=== PATIENT | male | born 1985 | race Caucasian/White ===

== ENCOUNTER 2017-02-25 12:22 | Emergency (ER) | payer OTHER ==
[2017-02-25] MEDS ORDERED: NS 1,000 ML IV ONE (12:57)
--- NOTE | 2017-02-25 13:52 | EDPHY ---
HPI/HX/ROS/PE/MDM Narrative: CHIEF COMPLAINT: Vomiting, abdominal cramping, diarrhea. HPI: This patient is a 31 year old male complaining of intermittent diarrhea and vomiting onset one week ago. 02/17/17 he felt nauseous, and subsequently developed diarrhea and vomiting. He ate a mostly liquid diet throughout the week but was able to eat solid food and feeling better over the weekend. Yesterday, he developed a "sour stomach" and his vomiting and diarrhea recurred last night. This morning, he visited urgent care, but was directed to the emergency department for further evaluation due to abdominal discomfort. He denies recent international travel, unusual food consumption, antibiotic use, or history of GI issues. He denies contact with any persons with similar symptoms. No fever, chest pain, shortness of breath, or other associated symptoms. REVIEW OF SYSTEMS: Aside from elements discussed in the HPI, a comprehensive 10-point review of systems was reviewed and is negative. PMH: Gout. SOCIAL HISTORY: No alcohol or tobacco use. Works in retail. Lives in [place]. PHYSICAL EXAM: General:Patient is alert, in no acute distress. ENT:Eyes are normal to inspection. ENT inspection normal. Neck: Normal inspection. Full range of motion. Respiratory:No respiratory distress. Breath sounds normal bilaterally. Cardiovascular: Regular rate and rhythm. Strong peripheral pulses. Normal cap refill. Abdomen:The abdomen is nontender to palpation. There are no peritoneal signs. There are normal bowel sounds. Back: Normal to inspection. No tenderness to palpation. Skin: Normal color. No rash. Warm and dry. Extremities: Normal appearance. Full range of motion. Neuro: Oriented x3. Normal motor function. Normal sensory function. Portions of this note were transcribed by an ED scribe. I personally performed the history, physical exam, and medical decision making; and confirm the accuracy of the information in the transcribed note. MDM: This patient presents with persistent vomiting and diarrhea of unknown etiology. His stool PCR is negative for organisms. He was sent to the ED by urgent care because of abdominal pain, but patient states 'that was just gas' and denies abdominal pain at this time. I had an extensive discussion with him regarding his symptoms and the possibility this represents appendicitis or other bowel pathology. I recommended CTAP but patient refuses and he would like to go home. He understands I cannot rule out potentially life-threatening illness without further testing, and he promises to return for any worsening of condition. - Data Points Laboratory Results: Laboratory Results 02/25/17 15:15 02/25/17 15:15 02/25/17 02/25/17 15:15 15:15 WBC 8.36 10^3/uL 10^3/uL (3.80-9.50) RBC 5.55 10^6/uL 10^6/uL (4.40-6.38) Hgb 16.7 g/dL g/dL (13.7-17.5) Hct 47.0 % % (40.0-51.0) MCV 84.7 fL fL (81.5-99.8) MCH 30.1 pg pg (27.9-34.1) MCHC 35.5 g/dL g/dL (32.4-36.7) RDW 11.7 % % (11.5-15.2) Plt Count 363 10^3/uL 10^3/uL (150-400) MPV 8.2 fL L fL (8.7-11.7) Neut % (Auto) 60.9 % % (39.3-74.2) Lymph % (Auto) 25.2 % % (15.0-45.0) Blair % (Auto) 11.8 % % (4.5-13.0) Eos % (Auto) 1.0 % % (0.6-7.6) Baso % (Auto) 0.5 % % (0.3-1.7) Nucleat RBC Rel Count 0.0 % % (0.0-0.2) Absolute Neuts (auto) 5.09 10^3/uL 10^3/uL (1.70-6.50) Absolute Lymphs (auto) 2.11 10^3/uL 10^3/uL (1.00-3.00) Absolute Monos (auto) 0.99 10^3/uL H 10^3/uL (0.30-0.80) Absolute Eos (auto) 0.08 10^3/uL 10^3/uL (0.03-0.40) Absolute Basos (auto) 0.04 10^3/uL 10^3/uL (0.02-0.10) Absolute Nucleated RBC 0.00 10^3/uL 10^3/uL (0-0.01) Immature Gran % 0.6 % % (0.0-1.1) Immature Gran # 0.05 10^3/uL 10^3/uL (0.00-0.10) Sodium 136 mEq/L mEq/L (134-144) Potassium 4.7 mEq/L mEq/L (3.5-5.2) Chloride 106 mEq/L mEq/L (97-110) Carbon Dioxide 18 mEq/l L mEq/l (22-31) Anion Gap 12 mEq/L mEq/L (8-16) BUN 11 mg/dL mg/dL (7-23) Creatinine 0.8 mg/dL mg/dL (0.7-1.3) Estimated GFR > 60 Glucose 109 mg/dL H mg/dL (70-100) Calcium 9.5 mg/dL mg/dL (8.5-10.4) Specimen Hemolysis 125 Medications Given: Discontinued Medications Sodium Chloride (Ns) 1,000 mls @ 0 mls/hr IV EDNOW ONE; Wide Open PRN Reason: Protocol Stop: 02/25/17 12:58 Last Admin: 02/25/17 15:05 Dose: 1,000 mls Lidocaine/Prilocaine (Emla Cream) 1 josé luis TP EDNOW ONE Stop: 02/25/17 14:27 Last Admin: 02/25/17 14:29 Dose: 1 josé luis Lorazepam (Ativan) 1 mg PO EDNOW ONE Stop: 02/25/17 14:27 Last Admin: 02/25/17 14:29 Dose: 1 mg Microbiology Results: MICROBIOLOGY 02/25/17 13:45 Stool Gastrointestinal Tract Panel (PCR) - Final No Organism Detected General Time Seen by Provider: 02/25/17 13:35 Initial Vital Signs: Initial Vital Signs Temperature (C) 36.8 C 02/25/17 12:27 Heart Rate 89 02/25/17 12:27 Respiratory Rate 18 02/25/17 12:27 Blood Pressure 111/73 02/25/17 12:27 O2 Sat (%) 96 02/25/17 12:27 O2 Delivery Mode Room Air Allergies/Adverse Reactions: No Known Allergies Allergy (Verified 02/25/17 12:26) Home Medications: Medication Instructions Recorded traZODone [traZODONE 100MG (*)] 100 mg PO 01/08/15 Allopurinol [Allopurinol 100 MG 100 mg PO DAILY 02/25/17 (*)] DESVENLAFAXINE SUCCINATE [Pristiq] 50 mg PO 02/25/17 Ondansetron Odt [Zofran Odt] 4 mg PO Q4PRN PRN #10 tab 02/25/17 Departure - Departure Disposition: Home, Routine, Self-Care Clinical Impression: Vomiting, Diarrhea Condition: Good Instructions: Acute Nausea and Vomiting (ED), Acute Diarrhea (ED) Additional Instructions: 1. Follow up with your primary care provider in the next three days for reevaluation. 2. Return to the emergency department for fever, uncontrollable vomiting, or diarrhea, abdominal pain or other worsening of condition. 3. You understand we are unable to rule out appendicitis without a CT scan. Please return immediately for increasing abdominal pain or other concerns. 4. Take your Zofran as prescribed as needed for nausea. Referrals: LAURA SALAZAR [Other] - As per Instructions Prescriptions: Ondansetron Odt [Zofran Odt] 4 mg PO Q4PRN PRN #10 tab PRN Reason: Nausea Report Scribed for: Demetrius Crowe Report Scribed by: Jacqueline Judge Date of Report: 02/25/17 Time of Report: 14:55
[2017-02-25] MEDS ORDERED: LIDOCAINE/PRILOCAINE 1 EACH CRTUBE TP ONE ×2 (14:25→14:26)
[2017-02-25] MEDS ORDERED: LORazepam 1 MG TAB ONE (14:25)
[2017-02-25] MEDS ORDERED: LORazepam 1 MG TAB PO ONE (14:26)
[2017-02-25 15:25] LABS: % IMMATURE GRANULYOCYTES 0.6 % (0.0-1.1); ABSOLUTE IMMATURE GRANULOCYTES 0.05 10^3/uL (0.00-0.10); ADD DIFF? NO; ADD MORPH? NO; ADD SCAN? NO; ATYPICAL LYMPHOCYTE FLAG 30 (0-99); FRAGMENT RBC FLAG 0 (0-99); HEMOGLOBIN 16.7 g/dL (13.7-17.5); LEFT SHIFT FLG 0 (0-99); LIPEMIA HEMOLYSIS FLAG 90 (0-99); MEAN CELL HEMOGLOBIN 30.1 pg (27.9-34.1); MEAN CELL HEMOGLOBIN CONCENTR. 35.5 g/dL (32.4-36.7); MEAN CELL VOLUME 84.7 fL (81.5-99.8); MEAN PLATELET VOLUME 8.2 fL (8.7-11.7); PLATELET CLUMPS FLAG 0 (0-99); PLATELET COUNT 363 10^3/uL (150-400); RED BLOOD CELL COUNT 5.55 10^6/uL (4.40-6.38); RED CELL DISTRIBUTION WIDTH 11.7 % (11.5-15.2)
[2017-02-25 15:43] LABS: ANION GAP 12 mEq/L (8-16); CALCIUM 9.5 mg/dL (8.5-10.4); CARBON DIOXIDE 18 mEq/l (22-31); CHLORIDE 106 mEq/L (97-110); CREATININE 0.8 mg/dL (0.7-1.3); GLOMERULAR FILTRATION RATE > 60; GLUCOSE 109 mg/dL (70-100); POTASSIUM 4.7 mEq/L (3.5-5.2); SODIUM 136 mEq/L (134-144); SPECIMEN HEMOLYSIS 125
[2017-02-25 16:05] VITALS: PULSE 98
[2017-02-25 16:38] VITALS: BP 125/86; RESP 18; TEMP 98.2; O2SAT 98
== END 2017-02-25 16:44 | disposition home or self-care (01) ==
DX: R11.10 Vomiting, unspecified (principal); R19.7 Diarrhea, unspecified; E86.9 Volume depletion, unspecified